=== PATIENT | male | born 1945 | race Caucasian/White ===

== ENCOUNTER 2016-12-18 23:53 | Inpatient (IN) | payer MEDICARE, BC ==
--- NOTE | ~2016-12-18 | CR72 ---
[facility] A Service of [facility] & [facility] RADIOLOGY TEXT RESULTS PATIENT: SONNY MACHADO LOCATION: C2A 239 : 45 UNIT #: [id number] AGE: [address]: Elie Clinton MD SEX: M ORDER DR: [id number] [facility] [address] [place], [place] [address] [id number] MR#: [id number] Acc #: [id number] NAME: SONNY MACHADO. : 1945 SEX: M STUDY DATE/TIME: 12/18/2016 23:04 UNIT: [facility] ROOM: 239 STUDY DESCRIPTION: CR Chest Single View Portable Attending Physician: Elie Clniton M.D. Ordering Physician: Lemuel Walls M.D. Primary Care Physician: Patti Viera M.D. MEDICAL IMAGING REPORT This report is preliminary unless electronic signature is present EXAM Portable chest, 12/18 at 23:04 INDICATION Shortness of air, chest pain and cough for 3 weeks. History of smoking. FINDINGS AP portable views of the chest are compared with 02/23/2015. Again seen is emphysema. There is chronic scarring at the left base with chronic pleural thickening or pleural fluid on the left side. No pneumothorax. Cardiac and mediastinal contours are normal. There is a left side coronary stent. There is some potentially new pleural-based density in the left apex. This is not clearly seen on the prior chest x-ray. It is also not definitively seen on the chest CT of 10/21/2015. Non-emergent followup with repeat chest CT is recommended. IMPRESSION Severe emphysema with chronic scarring at the left base and chronic left pleural thickening or pleural fluid. There are no acute infiltrates. However, there is increased density at the left lung apex not definitely seen on prior studies. Cannot exclude the presence of developing mass. Non-emergent chest CT recommended for follow up. Dictated by... Joce Tate Jr., M.D. THIS IS AN ELECTRONICALLY VERIFIED REPORT Joce Tate Jr., M.D. at 12/19/2016 9:15 PM ALEC/bronson TD: 12/19/2016 09:49 JOB #: [id number] [facility] A Service of [facility] RADIOLOGY TEXT RESULTS PATIENT: SONNY MACHADO LOCATION: [facility] 239- : 45 UNIT #: [id number] AGE: [address]: Elie Clinton MD SEX: M ORDER DR: MEDICAL IMAGING REPORT COPY
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
--- NOTE | ~2016-12-18 | CO ---
Unit #: [id number] #: [id number] Patient: SONNY MACHADO [id number] [place] [id number] [facility]. [place], [place] [address] [id number] I MR#: [id number] NAME: SONNY MACHADO. ROOM: 239 Age: 71 Sex: M Admission Date: 12/19/2016 : 1945 Attending Physician: Elie Clinton M.D. Primary Care Physician: Patti Viera M.D. Consultation Date: 12/25/2016 CONSULTATION REPORT HISTORY OF PRESENT ILLNESS Mr. Machado is a 71-year-old gentleman, who is a patient of Dr. Viera, who was admitted to the hospital with community-acquired right lower lobe pneumonia. During evaluation, it was noted that he has had significant weight loss over the last year with estimates between 70 pounds and 100 pounds. As a result, he underwent endoscopic evaluation by Dr. Trejo and on today's colonoscopy in the cecum around the orifice of the appendix, Dr. Trejo was concerned there may be a malignancy. There was unfortunately some retained stool and biopsy was not performed. However on CT scan, there is also an abnormality in this area, although not well defined. The concern is because of lack of other etiologies for his weight loss that this could be an appendiceal or cecal carcinoma. Dr. Trejo has asked to see the patient to perform a possible cecectomy or hemicolectomy as appropriate. PAST MEDICAL HISTORY The patient has a history of ankylosing spondylitis with significant mobility issues. He has a history of congestive heart failure with an ejection fraction of 20%, history of left apical thrombus, but it is not a candidate for anticoagulation. He has had prostate cancer, status post resection; chronic kidney disease, COPD with ongoing tobacco abuse; asthma; anxiety; bilateral inguinal hernia repair; basal cell cancer surgery. HOME MEDICATIONS Include Valium, Percocet, Neurontin, and Remeron. FAMILY HISTORY Noncontributory. SOCIAL HISTORY Continued tobacco abuse. Denies use of alcohol or drugs. He lives by himself, but he has a sister who is very supportive. ALLERGIES He is allergic to shellfish and influenza virus. REVIEW OF SYSTEMS He denies hematemesis, hematochezia, or melena. He does admit to significant weight loss, but he is uncertain the exact amount. His doctor is documented anywhere from 70 to 100 pounds. The patient stating that he is eating without difficulty. PHYSICAL EXAMINATION Unit #: [id number] #: [id number] Patient: SONNY MACHADO VITAL SIGNS: Temperature is 97.3, pulse is 66, respirations 16, blood pressure 107/45. GENERAL: He is awake, alert, and oriented. He is frustrated by being in the hospital. HEENT: Unremarkable. CARDIAC: Regular rhythm. LUNGS: Clear. ABDOMEN: Soft and nontender. No palpable masses. No inguinal adenopathy. No hernia. EXTREMITIES: No edema. NEUROLOGIC: Grossly intact. SKIN: No skin rashes or lesions. DIAGNOSTIC STUDIES LABORATORY RESULTS: Basic metabolic panel today is unremarkable. Magnesium is normal. On admission, liver chemistries and amylase and lipase were normal. White count is 8100, hemoglobin 12.4, platelets 145,000. IMAGING STUDIES: CT scan of the chest shows a right lower lobe pneumonia and emphysema. CT scan of the abdomen and pelvis is read as abnormality at the base of the cecum could not rule out fecalith and ileus, diffuse atherosclerotic disease, history of prostatectomy. Plain films of the abdomen otherwise unremarkable. ASSESSMENT AND PLAN A 71-year-old gentleman, who underwent colonoscopy by Gastroenterology and there was concern about an abnormality around the appendiceal orifice. With his significant weight loss and no other findings, there was concern he could have an occult malignancy. I discussed with the patient the possibility of doing a partial cecectomy for diagnosis followed by hemicolectomy if he does in fact have an underlying malignancy. The patient currently was fixated on the fact that he wants to go home and take care of some personal issues. I discussed with him the possibility that this could be a malignancy and he said he understands and knows putting it off could be detrimental, but he still wants to leave the hospital and states he will follow up in 2 to 3 weeks, as far as his pneumonia that will be up to the medical physician whether or not he has been adequately treated to leave the hospital. I also discussed with the patient that if he leaves the hospital before undergoing surgery at this time that we would have to repeat his bowel prep prior to surgery and he expresses understanding. Due to his history of congestive heart failure, an ejection fraction of 20%. I have asked Dr. Andrade to evaluate the patient to see his suitability for surgery. Dictated by... Carina Griffin/ron TD: 12/26/2016 03:04 JOB #: [id number] Unit #: [id number] #: [id number] Patient: SONNY MACHADO CONSULTATION REPORT X Joce Mcmahan MD X CONSULTATION REPORT
--- NOTE | ~2016-12-18 | A ---
[facility] Nutrition Therapy DATE: 12/19/16 Patient: SONNY MACHADO Physician: YOU Address: [address] [place] [address] Room/Bed: [address] [place] [address], Zip: [place] [address] Admit Date: 12/19/16 Date of : [birth year] Height: 6 0 Weight: 121 55.2 NUTRITIONAL ASSESSMENT: REASON: 7 NUTRITION RISK PT RE: WEIGHT LOSS + POOR PO INTAKE, ALSO SEEN FOR LOW BMI + CONSULT RECEIVED PMH: ANKYLOSING SPONDYLITIS, CKD, HTN, CHF, COPD, ASTHMA, PROSTATE CA, HX OF INGUINAL HERNIA REPAIR Anthropometrics: 6'0", WT: 124# (56 KG), BMI: 16,8, 70%IBW Labs: GLU: 198, ALT: 5, LIPASE: 14 Meds: REMERON, NACL I/O & Bowel function: 240/- Skin Integrity: NO KNOWN SKIN ISSUES Estimated Nutrition Needs: INCREASED NUTRIENT NEEDS 2' SEVERE WEIGHT LOSS NOTED, CURRENT CONDITION Assessment: CHART REVIEWED AND EVENTS NOTED. PT SEEN FOR WEIGHT LOSS + POOR PO INTAKE + LOW BMI. PT REPORTED FAIR/GOOD PO INTAKE AND APPETITE, NO C/O N/V/D. PT REPORTS CONSUMING 2 MEALS DAILY + 4 ENSURE SHAKES (NOTE: PT NOT A BREAKFAST EATER). PT REPORTS LOSING ~70# PAST 8 MONTHS/36% SEVERE WEIGHT LOSS NOTED. THIS RD ENCOURAGED ADEQUATE KCAL, PROTEIN AND FLUID INTAKE FOR GRADUAL WEIGHT GAIN. PT AGREED TO ENSURE SHAKES TID W/MEALS. PT REPORTED NO DIET QUESTIONS AT THIS TIME. RD TO FOLLOW. SEE RECOMMENDATIONS BELOW. Dx: SEVERE PROTEIN/KCAL MALNUTRITION R/T CURRENT CONDITION, PMH AEB ~36% SEVERE WEIGHT LOSS NOTED IN 8 MONTHS, LOW BMI OF 16.8, 70%IBW. Intervention: 1. HH DIET (NPO AFTER MIDNIGHT FOR EGD 12/20/16) 2. ENSURE SHAKES TID W/MEALS 3. CHANGE CURRENT DIET ORDER TO REGULAR Monitoring, Evaluation and Goals: 1. PO INTAKE; PROVIDE AND CONSUME ADEQUATE NUTRITION W/NO C/O N/V/D (PO>50%) 2. WEIGHTS; PROMOTE GRADUAL WEIGHT GAIN TOWARDS HEALTHY BMI (19.0-25.0) 3. GI; PROMOTE REGULAR GI FUNCTION MONITOR: -PO INTAKE/APPETITE/DIET CHANGE [facility] Nutrition Therapy DATE: 12/19/16 Patient: SONNY Buchanan CARTER Physician: YOU Address: [address] [place] [address] Room/Bed: [address] [place] [address], Zip: [place] [address] Admit Date: 12/19/16 Date of : [birth year] Height: 6 0 Weight: 121 55.2 -SUPPLEMENT INTAKE -WEIGHTS -LABS Recommendations: 1. OBTAIN UPDATED WEIGHT q 3 DAYS FOR MONITORING PURPOSES 2. RECOMMEND TO CHANGE CURRENT DIET ORDER TO REGULAR TO BETTER FACILITATE PO INTAKE, OFFER MORE FOOD CHOICES 3. ORDER TANYA ENSURE SHAKES TID W/MEALS 4. IF PO INTAKE <50%, RECOMMEND APPETITE STIMULANT, SUCH MEGACE, TO STIMULATE PO INTAKE 5. APPRECIATE FAMILY AND STAFF TO ENCOURAGE ADEQUATE KCAL, PROTEIN AND FLUID INTAKE 2' PT UNDERWEIGHT, SEVERE WEIGHT LOSS NOTED RD WILL F/U PER PROTOCOL PT IS SEVERELY COMPROMISED Respectfully, CHRISS OTT MS, RD, LD [facility] cc: client file
--- NOTE | ~2016-12-18 | MAL ---
[facility] Nutrition Therapy DATE: 12/19/16 Patient: SONNY A CARTER Physician: YOU Address: [address] [place] [address] Room/Bed: [address] [place] [address], Zip: [place] [address] Admit Date: 12/19/16 Date of : [birth year] Height: 6 0 Weight: 121 55.2 PHYSICAL MALNUTRITION ASSESSMENT Energy Intake, Chronic Illness Moderately reduced: <75% needs for >/=1 month Severely reduced: </=50% needs for >/=1 month Energy Intake Comment: PT REPORTS CONSUMING 2 MEALS DAILY + 4 ENSURE SHAKES. PT NOTES HE SKIPS BREAKFAST DAILY. Weight Loss, Chronic Illness Severe: >10% past 6 months Severe: >20% past 1 year Weight Loss, Comment: PT REPORTS LOSING ~70# PAST 8 MONTHS/36% SEVERE WEIGHT LOSS NOTED Physical Findings Body Fat and Muscle Mass Severe: (obvious) significant muscle wasting and/or loss of subcutaneous fat Physical Findings Functional Capacity Moderate: (suggested) reduced functional capacity Severe: (obvious) bedridden or otherwise significantly reduced functional capacity Physical Findings Comment: PMH OF ANKYLOSING SPONYLITIS. PER RD OBSERVATION, TEMPORAL AREA HOLLOW/DEPRESSED, PROTRUDING, PROMINENT SHOULDERS AND CLAVICLE, PROMINENT SCAPULA, NO MUSCLE DEFINITION NOTED BICEPS/TRICEPS AND CALVES. ALSO, RD OBSERVED, PRONOUNCED HOLLOW DEPRESSED EYES, PROMINENT CHEST AND WELL-DEFINED RIBS, DRY MOUTH, DRY SKIN AND NAILS OBSERVED. Chronic illness moderate Chronic illness severe Malnutrition Survey Comment: PT TO BE SEVERELY COMPROMISED. SEE RD ASSESSMENT ON 12/19/16 Respectfully, CHRISS OTT MS, RD, LD [facility] Nutrition Therapy DATE: 12/19/16 Patient: SONNY MACHADO Physician: YOU Address: [address] [facility] Room/Bed: [address] [place] [address], Zip: [place] [address] Admit Date: 12/19/16 Date of : [birth year] Height: 6 0 Weight: 121 55.2 Food and Nutritional Services [facility] cc: client file
--- NOTE | ~2016-12-18 | HP ---
Unit #: [id number] #: [id number] Patient: SONNY MACHADO [id number] [address] [place], [place] [address] [id number] I MR#: [id number] NAME: SONNY MACHADO ROOM: 239 Age: 71 Sex: M Admission Date: 12/19/2016 : 1945 Attending Physician: Elie Clinton M.D. Primary Care Physician: Patti Viera M.D. HISTORY AND PHYSICAL CHIEF COMPLAINT Shortness of breath, cough with sputum production. HISTORY OF PRESENTING ILLNESS Mr. Machado is a 71-year-old male who has a significant medical history of ankylosing spondylitis with significant disability, chronic kidney disease, hypertension, congestive heart failure with ejection fraction of 20% to 25%, left apical thrombus, history of prostate cancer, history of basal cell carcinoma of the skin, tobacco abuse, came with a complaint of shortness of breath. According to patient, this has been going on for the last two weeks which was gradually getting worse. The patient is also bringing sputum which is whitish to yellowish color. He does not have any orthopnea, no paroxysmal nocturnal dyspnea. He is not able to ambulate even one block without getting short of breath. Most of the time it is exertional dyspnea. Does not complain of chest pain. Does not complain of abdominal pain. He does have some dizziness. No syncopal episode. PAST MEDICAL HISTORY 1. History of congestive heart failure with ejection fraction of 20% to 25% with apical thrombus, not a candidate for anticoagulation. 2. History of prostate cancer, status post surgery. 3. History of ankylosing spondylitis with significant disability. 4. Chronic kidney disease. 5. Ongoing tobacco abuse. 6. History of COPD/asthma. 7. History of anxiety. PAST SURGICAL HISTORY 1. Prostate surgery. 2. Bilateral inguinal hernia repair. 3. Basal cell cancer surgery. SOCIAL HISTORY The patient has a history of smoking and continued to smoke. No history of alcohol abuse or drug abuse. He lives by himself. His sister lives in [place]. He has no other family member. HOME MEDICATIONS 1. Valium 10 mg four times a day. 2. Percocet 10/325 mg q.4 p.r.n. 3. Neurontin 400 mg four times a day. 4. Remeron 60 mg at bedtime. FAMILY HISTORY Unit #: [id number] #: [id number] Patient: SONNY MACHADO Unremarkable. REVIEW OF SYSTEMS There is no history of fevers, chills or rigors. The patient has had significant weight loss. He does not complain of abdominal pain. Does not complain of appetite loss. He has been eating properly and trying to even have some Ensure but it is very expensive so cannot afford much. Does not complain of black colored stools. Does not complain of syncopal episode. Does not complain of any skin issues but he continues to lose weight. He does have significant ankylosing spondylitis with significant disability. PHYSICAL EXAMINATION GENERAL: The patient is lying comfortably in bed, does not seem to be in any respiratory distress. VITAL SIGNS: Blood pressure is 96/58, respiratory rate 18, pulse is 80, temperature 97.4. Oxygen saturation is 99% on 2 L. HEENT: Head is normocephalic. Eye movements are normal. NECK: Supple. CHEST: Fair air entry, decreased in the right lower lobe. CVS: S1, S2 positive. Regular rhythm. ABDOMEN: Soft, nontender although scaphoid. Bowel sounds are positive. No ascites noted. EXTREMITIES: Bilateral lower extremities - no edema. Pulses are palpable. SCRIPT EDITOR: The patient is awake, alert, oriented x3 although poor historian. DIAGNOSTIC STUDIES LABORATORY: Lab workup done in ER - WBC 10.4, hemoglobin 13.8, hematocrit 41.3 and platelet count of 181. PT/INR is 11.8 and 1.1. Lactic acid 2.5. Sodium 132, potassium 3.2, chloride 91, BUN 10, creatinine 1.3. Liver enzymes are normal. Amylase and lipase normal. Magnesium 1.8. Troponin less than 0.03. IMAGING: CT scan preliminary results show right lower lobe infiltrate and some pericardial effusion. Abdomen and pelvis preliminary is not much significant. We are awaiting for the final results. ASSESSMENT AND PLAN Patient is admitted to Med/Surg unit with: 1. Right lower lobe pneumonia, community-acquired. 2. Significant weight loss, etiology unknown at this time. 3. Hypertension. 4. History of congestive heart failure with last ejection fraction 20% to 25% with apical thrombus in 11/2015. The patient is not on any beta miguel or MONIQUE inhibitor secondary to hypertension. 5. Chronic kidney disease. 6. Ongoing tobacco abuse. 7. History of prostate cancer, status post surgery. 8. History of ankylosing spondylitis with significant disabilities. Unit #: [id number] #: [id number] Patient: SONNY MACHADO PLAN Admit to Med/Surg unit. Dr. Ruano has been consulted. Will wait for final results on CT scan of the chest and abdomen. Orthostatic blood pressure will be done. Dr. Trejo will be consulted for possible EGD and colonoscopy. PSA is being checked. Echocardiogram will be repeated. Last note from Dr. Andrade's office will be obtained. Home medications have been reviewed and adjusted. Plan of care has been discussed with patient at length. Dictated by Carina Thomas/vickey TD: 12/19/2016 09:46 JOB #: [id number] HISTORY AND PHYSICAL X Patti Viera MD X HISTORY AND PHYSICAL
--- NOTE | ~2016-12-18 | CT4 ---
[facility] A Service of [facility] RADIOLOGY TEXT RESULTS PATIENT: SONNY MACHADO LOCATION: [facility] 239- : 45 UNIT #: [id number] AGE: [address]: Elie Clinton MD SEX: M ORDER DR: [id number] [facility] [address] [place], [place] [address] [id number] I MR#: [id number] Acc #: [id number] NAME: SONNY MACHADO. : 1945 SEX: M STUDY DATE/TIME: UNIT: [facility] ROOM: 239 STUDY DESCRIPTION: CT Abd and Pelv Wo Cont Attending Physician: Elie Clinton M.D. Ordering Physician: Lemuel Walls M.D. Primary Care Physician: Patti Viera M.D. MEDICAL IMAGING REPORT This report is preliminary unless electronic signature is present EXAM Abdomen and pelvis CT 12/19/2016 at 0103 hours INDICATION Fatigue for 2 weeks getting worse with lightheadedness and loss of appetite. Patient reports constipation and groin pain with a fall 2 days ago. Patient has a history of prostate cancer. TECHNIQUE Axial images were obtained through the abdomen and pelvis without contrast. Multiplanar reformats were obtained. This CT exam was performed with one or more of the following radiation dose reduction techniques: automatic exposure control, adjustment of mA and/or kV according to patient size, and iterative reconstruction. COMPARISON Comparison is made with 10/26/2015. FINDINGS ABDOMEN: For a description of findings in the lung bases, please see the chest CT report dictated separately. The exam is degraded by the lack of contrast. Of note, the patient has an allergy to IV contrast. Again seen is diffuse atherosclerotic disease. Tiny nonobstructing stones versus vascular calcifications noted lower pole left kidney. No ureteral stones and no hydronephrosis. The unenhanced solid organs are grossly normal. Gallbladder is unremarkable. There is no bowel obstruction. Gas in small bowel loops could reflect a mild ileus. There is also prominent colonic gas noted. PELVIS: There is atherosclerotic disease. High-density material is noted in the cecum and could reflect contrast or other ingested material. This is seen on the prior study as well. It probably reflects a fecalith. I believe the appendix is normal. Gas-filled and fluid-filled mildly STS. [facility] A Service of [facility] RADIOLOGY TEXT RESULTS PATIENT: SONNY MACHADO LOCATION: [facility] 239-01 : 45 UNIT #: [id number] AGE: [address]: Elie Clinton MD SEX: M ORDER DR: distended distal small bowel loops are present. These are increased over prior and may reflect ileus. The urinary bladder is normal. There are no lower ureteral stones. The prostate is surgically absent. Minimal free fluid noted in the dependent pelvis. There are no suspicious osseous lesions in the abdomen or pelvis. There is degenerative disease in the lumbar spine and hips, left greater than right. IMPRESSION 1. There is an apparent fecalith within the cecum. 2. Prominent small bowel loops are noted with gas and mild distension. This probably reflects a generalized ileus as there is some prominent colonic gas as well. Developing small bowel obstruction is not completely excluded. What appears to be the appendix is normal. 3. Prostatectomy. No convincing evidence of metastatic prostate cancer. 4. Diffuse atherosclerotic disease. There are tiny nonobstructing stones versus vascular calcifications in the lower pole of the left kidney. No hydronephrosis. 5. Trace nonspecific free fluid in the dependent pelvis. STAT * RESULT Dictated by... Joce Tate Jr., M.D. THIS IS AN ELECTRONICALLY VERIFIED REPORT Joce Tate Jr., M.D. at 12/19/2016 9:15 PM ALEC/genaro TD: 12/19/2016 09:50 JOB #: [id number] MEDICAL IMAGING REPORT COPY
--- NOTE | ~2016-12-18 | FU ---
[facility] Nutrition Therapy DATE: 12/24/16 Patient: SONNY MACHADO Physician: YOU Address: [address] [place] [address] Room/Bed: [address] [place] [address], Zip: [place] [address] Admit Date: 12/19/16 Date of : [birth year] Height: 6 0 Weight: 126 57.5 NUTRITION MONITORING/FOLLOW-UP: Reason: Nutrition follow up Anthropometrics: Ht: 72", admission wt: 124 lbs, current wt: 126 lbs, BMI: 16.8 (underweight) Labs: Glucose 134 Meds: Citrate of Mg, Miralax, Solu-medrol GI: LBM 12/24, abdominal cramping due to bowel prep noted Skin: No changes, no edema Estimated Nutrition Needs: Increased needs r/t weight loss, malnutrition Assessment: Chart reviewed, events noted. Patient on 2L nasal cannula, up 2 lbs since admission weight. 12/20 EGD showed mild chronic gastritis, patient has been on clear liquids since yesterday 12/23, previously on healthy heart diet. RD previously diagnosed with severe PCM and recommended regular diet with chocolate Ensure TID. GI following, patient currently going through bowel prep for colonoscopy in AM, will be NPO after midnight. Patient is refusing short-term rehab. RD unable to make further interventions at this time due to current diet order, see recs below. Previous nutrition goals not yet met, nutrition dx remains. Dx: Severe protein calorie malnutrition r/t clinical condition, PMH AEB 36% body weight loss in 8 months (severe), BMI 16.8, 70% IBW. - ACTIVE Intervention: See recs below Monitoring, Evaluation and Goals: NOT MET, see new goals 1. Tolerance of diet advancement once ordered. 2. Normalize GI function. 3. Gradual weight gain towards a healthy BMI range. Monitor: Per protocol, criteria to determine if above goals met Recommendations: 1. Once medically able advance PO diet to regular diet as tolerated and order chocolate Ensure TID. Appreciate staff/family to encourage PO intake. Please consult RD with any [facility] Nutrition Therapy DATE: 12/24/16 Patient: SONNY MACHADO Physician: YOU Address: [address] [place] [address] Room/Bed: [address] [place] [address], Zip: [place] [address] Admit Date: 12/19/16 Date of : [birth year] Height: 6 0 Weight: 126 57.5 nutrition-related abnormal findings on colonoscopy. 2. Please weigh q 3 days for monitoring purposes as the patient is underweight. 3. GI to follow. Status: Moderate nutrition risk Respectfully, María Elena Grijalva RD, LD Food and Nutritional Services [facility] cc: client file
--- NOTE | ~2016-12-18 | OR ---
Unit #: [id number] #: [id number] Patient: SONNY MACHADO [id number] [address] [address] [id number] I MR#: [id number] NAME: SONNY MACHADO ROOM: 239 Date of Procedure: 12/20/2016 Admission Date: 12/19/2016 Surgeon: Guillermo Trejo M.D. : 1945 Attending Physician: Elie Clinton M.D. Primary Care Physician: Patti Viera M.D. OPERATIVE REPORT PROCEDURE PERFORMED Esophagogastroduodenoscopy with biopsies. INDICATIONS FOR PROCEDURE The patient with very poor intake, 70-pound weight loss, undergoing evaluation with upper endoscopy. MEDICATIONS Monitored anesthesia. POSTOPERATIVE FINDINGS 1. Normal esophagus. 2. Mild chronic gastritis, biopsies taken. 3. Normal duodenum and distal duodenum. PLAN No clear etiology found. Continue with symptomatic treatment and encourage p.o. intake. We will also have speech evaluate him for swallow function. DESCRIPTION OF PROCEDURE The patient was explained of the procedure, risks, and benefits along with risks and benefits of anesthesia. He was brought to the endoscopy room. Propofol anesthesia was given. Bite block was placed. The scope was passed down the mouth into esophagus, stomach, duodenum, and distal duodenum. Findings as described. Biopsies taken. Gently, I pulled the scope out of the patient's mouth. He tolerated it well. No major complications were seen. Dictated by... Carina Dixon/ron TD: 12/21/2016 02:14 JOB #: [id number] Unit #: [id number] #: [id number] Patient: SONNY MACHADO OPERATIVE REPORT X Guillermo Trejo MD X PROCEDURE OPERATIVE NOTE
--- NOTE | ~2016-12-18 | DS ---
Unit #: [id number] #: [id number] Patient: SONNY MACHADO [id number] [address] [address] [id number] I MR#: [id number] NAME: SONNY MACHADO. ROOM: 239 Age: 71 Sex: M Admission Date: 12/19/2016 : 1945 Discharge Date: 12/25/2016 Attending Physician: Elie Clinton M.D. Primary Care Physician: Patti Viera M.D. DISCHARGE SUMMARY FINAL DIAGNOSES 1. Right lower lobe pneumonia. 2. Chronic systolic congestive heart failure with left ventricular ejection fraction of 20% to 25% per echo, which was done on 12/19/2016. 3. Chronic left ventricular apical clot. 4. Mild mitral regurgitation. 5. Mild to moderate tricuspid regurgitation. 6. Right ventricular systolic pressure elevated to 30 mmHg. 7. Chronic obstructive pulmonary disease. 8. Hypertension. 9. Chronic kidney disease. 10. Ankylosing spondylitis. 11. Significant weight loss. 12. Coronary artery disease, status post percutaneous coronary intervention and stent placement in 2010. 13. Nicotine abuse. 14. Cecal mass, status post colonoscope, which was done on 12/25/2016. DISCHARGE MEDICATIONS Florinef 0.1 mg p.o. b.i.d.; prednisone tapering dose; Neurontin 400 mg q.i.d.; Remeron 60 mg at bedtime; Valium 10 mg q.i.d. p.r.n.; Percocet, continue home dose; Omnicef 300 mg p.o. b.i.d. for 3 more days as the patient has received IV Rocephin and Zithromax during hospitalization. CONSULTATION DURING HOSPITALIZATION Dr. Andrade from Cardiology Services; Dr. Ruano from Pulmonary Services; Dr. Mcmahan from [facility]; Dr. Trejo from Gastroenterology. DIAGNOSTIC STUDIES LABORATORY RESULTS: On discharge, blood cultures, no growth. WBC 8.1, hemoglobin 12.4, hematocrit 38.9, and platelet count of 145. Sodium 140, potassium 4.1, chloride 96, BUN 13, creatinine 1.2. Sputum culture 1+ normal aleksandra. Status post bronch, which showed 3+ normal aleksandra. Hemoccult in stool was negative. Diagnostic bronchoscopy was done on 12/22/2016, vocal cords appeared to be symmetrically moving towards the midline. Trachea was normal. Right upper, right middle, right lower lobe, left upper lobe, lingula and left lower lobe seems to be stable. No endobronchial lesions were seen. There was thick mucoid secretion in both lungs, which were therapeutically suctioned. EGD, which showed normal esophagus with mild chronic gastritis, biopsy taken, normal duodenum and distal duodenum. Unit #: [id number] #: [id number] Patient: SONNY MACHADO A Colonoscopy, which showed a cecal mass and polyp. HOSPITAL COURSE Mr. Reeder is a 71-year-old male, who was admitted to the hospital on 12/19/2016 with shortness of breath, cough and sputum production. The patient was admitted to hospital and was diagnosed with right lower lobe pneumonia. Dr. Freeman and Dr. Ruano were consulted and the patient was started on IV antibiotics. The patient did have a bronchoscopy done, which seemed to have no endobronchial lesion. The patient was also seen by Dr. Andrade because of abnormal echocardiogram, which showed an ejection fraction of 20% to 25%. It seems like the patient does have coronary artery disease, and used to see a induction coordination engineer in [facility]. The patient also has chronic left ventricular apical clot. The patient will need a stress test done before surgical procedure for cecal mass. The patient does not want to stay in the hospital. He has something to do at home. We are going to discharge him home to have a stress test done in a week or so and after that, he needs to be scheduled with Dr. Mcmahan for cecal mass surgery. Again, colonoscope was done, which showed cecal mass and the patient needs to have that looked at and surgery done by Dr. Mcmahan, but Dr. Mcmahan did see the patient on 12/25/2016, but he refused to stay in the hospital. So, as per Dr. Mcmahan, follow up with him in office when ready to schedule surgery. The patient will have to have a stress test done before surgery. Please refer to progress note for further orders. DISCHARGE INSTRUCTIONS 1. The patient is being discharged home. 2. Follow up with Dr. Viera in 1 week. 3. Follow up with Dr. Andrade for cardiac stress test in a week. 4. Follow up with Dr. Mcmahan after patient has been cleared from Cardiology point of view for cecal mass surgery. DISCHARGE MEDICATIONS As per med rec. Dictated by... Carina Thomas/ron TD: 12/27/2016 05:30 JOB #: [id number] DISCHARGE SUMMARY X Patti Viera MD X DISCHARGE SUMMARY
--- NOTE | ~2016-12-18 | CR4 ---
[facility] A Service of [facility] RADIOLOGY TEXT RESULTS PATIENT: SONNY MACHADO LOCATION: [facility] 239- : 45 UNIT #: [id number] AGE: [address]: Elie Clinton MD SEX: M ORDER DR: [id number] [facility] [address] [place], [place] [address] [id number] I MR#: [id number] Acc #: [id number] NAME: SONNY MACHADO. : 1945 SEX: M STUDY DATE/TIME: 12/20/2016 13:44 UNIT: [facility] ROOM: 239 STUDY DESCRIPTION: CR Abdomen Flat Upright or Dec Attending Physician: Elie Clinton M.D. Ordering Physician: Guillermo Trejo M.D. Primary Care Physician: Patti Viera M.D. MEDICAL IMAGING REPORT This report is preliminary unless electronic signature is present EXAM Flat and upright abdomen 12/20/2016 INDICATIONS 71-year-old male with abdominal pain, diarrhea, weight loss, symptoms 2 weeks. Weight loss of 100 pounds over the past year. Supine and upright views of the abdomen were performed. COMPARISON STUDIES Correlation is made with CT 12/19/2016 FINDINGS Exam is markedly degraded by technical factors, primarily related to exposure and motion. The upright view is particularly limited. There is no gross free air identified. There is gaseous distension of small and large bowel. Supine view demonstrates gaseous distension of small and large bowel without distinct transition point. Moderate stool burden in the right colon. Air is seen to the level of the rectum. There is clothing artifact on 1 of the 2 supine views. Postop changes that may reflect prior prostate surgery noted. There is degenerative change in the hips and lumbar spine. Additional presumably external artifact related to keys and coins project over the hips bilaterally. Incidental note is made of consolidation in the left lung base. This would be better assessed with a chest x-ray. Imaging features are suspicious for pneumonia. IMPRESSION 1. Limited examination demonstrates no distinct free air. There is gaseous distension of small and large bowel to the level the rectum and imaging features likely reflect a diffuse ileus. 2. Moderate stool burden in the right colon. 3. Consolidation in the left lung base suspicious for pneumonia. 4. Degenerative changes in the lumbar spine and both hips. [facility] A Service of [facility] RADIOLOGY TEXT RESULTS PATIENT: SONNY MACHADO LOCATION: [place] [address] : [birth year] UNIT #: [id number] AGE: [address]: Elie Clinton MD SEX: M ORDER DR: Dictated by... Tawanda Ospina M.D. THIS IS AN ELECTRONICALLY VERIFIED REPORT Tawanda Ospina M.D. at 12/21/2016 8:11 AM Mega TD: 12/20/2016 16:58 JOB #: [id number] MEDICAL IMAGING REPORT COPY
--- NOTE | ~2016-12-18 | OR ---
Unit #: [id number] #: [id number] Patient: SONNY MACHADO [id number] [address] [place], [place] [address] [id number] Jeremy MR#: [id number] NAME: SONNY MACHADO. ROOM: 239 Date of Procedure: 12/25/2016 Admission Date: 12/19/2016 Surgeon: Guillermo Trejo M.D. : 1945 Attending Physician: Elie Clinton M.D. Primary Care Physician: Patti Viera M.D. OPERATIVE REPORT PROCEDURE PERFORMED Colonoscopy with snare polypectomy. INDICATIONS FOR PROCEDURE The patient with unexplained severe weight loss, abnormal CT scan showing possible cecal abnormality, undergoing colonoscopy for evaluation. MEDICATIONS Monitored anesthesia. POSTOPERATIVE FINDINGS 1. There was at least 3 to 4 cm bulging mass at the appendiceal orifice. It could be possibly inverted appendix with the mass versus fecalith. Overlying mucosa was normal. 2. Polyp, transverse colon, snared and sent for histopathology. Hemoclips placed on the polypectomy site. 3. Few diverticula were noted. 4. Poor anal tone and internal hemorrhoids. PLAN 1. Follow up on pathology report. 2. Surgical consult for possible limited resection of the cecum and appendiceal mass. DESCRIPTION OF PROCEDURE The patient was explained of the procedure, risks, and benefits along with risks and benefits of anesthesia. He was brought to the endoscopy room. Propofol anesthesia was given. Rectal exam was done, which was normal. Colonoscope was lubricated, passed up the rectum, advanced under direct vision all the way to the cecum. Cecum shows findings as described. The scope was then carefully withdrawn. Prep was good. Polyp seen in transverse colon was snared and sent for histopathology. I retroflexed in the rectum, internal hemorrhoids noted. Gently, the scope was pulled out. He tolerated it well. No major complications were seen. Dictated by... Carina Dixon/ron Unit #: [id number] #: [id number] Patient: SONNY MACHADO TD: 12/25/2016 23:50 JOB #: [id number] OPERATIVE REPORT X Guillermo Trejo MD PROCEDURE OPERATIVE NOTE
--- NOTE | ~2016-12-18 | OR ---
Unit #: [id number] #: [id number] Patient: SONNY MACHADO [id number] [address] [address] [id number] I MR#: [id number] NAME: SONNY MACHADO. ROOM: 239 Date of Procedure: Admission Date: 12/19/2016 Surgeon: Laurence Ruano M.D. : 1945 Attending Physician: Elie Clinton M.D. Primary Care Physician: Patti Viera M.D. PROCEDURE OPERATIVE NOTE PROCEDURE PERFORMED Diagnostic bronchoscopy. INDICATIONS Pneumonia. PREPROCEDURE DIAGNOSIS Pneumonia. POSTPROCEDURE DIAGNOSIS Pneumonia. DETAIL OF PROCEDURE After taking consent from the patient explaining risks and benefits, the patient was placed in a proper position. Bronchoscope introduced through the oral cavity. Vocal cords appear to be symmetrically moving toward the midline. Trachea was normal. We examined right upper, right middle, right lower lobe, left upper lobe, lingula, and left lower lobe. No endobronchial lesions was found. There was thick mucoid secretions in both lungs which were therapeutically suctioned. Then, we did a bronchoalveolar lavage in the right lower lobe are with 100 mL of saline and in and 20 mL back. Patient tolerated procedure very well. No complications happened. Dictated by... Carina Pérez TD: 12/22/2016 14:42 JOB #: [id number] Unit #: [id number] #: [id number] Patient: SONNY MACHADO PROCEDURE OPERATIVE NOTE X Laurence Rauno MD PROCEDURE OPERATIVE NOTE
--- NOTE | ~2016-12-18 | EKG ---
PATIENT: SONNY MACHADO UNIT #: [id number] Ventricular Rate: 103 BPM Atrial Rate: 83 BPM P-R Interval: 136 ms QRS Duration: 76 ms Q-T Interval: 344 ms QTC Calculation(Bezet): 450 ms P Clifton: 81 degrees Calculated R Clifton: 92 degrees Calculated T Clifton: 69 degrees Diagnosis Line: Sinus rhythm with Premature supraventricular Diagnosis Line: complexes and with occasional Premature Diagnosis Line: ventricular complexes Diagnosis Line: Rightward axis Diagnosis Line: Low voltage QRS Diagnosis Line: Poor R wave progression questionable lead position Diagnosis Line: or body habitus Diagnosis Line: T wave abnormality, consider lateral ischemia Diagnosis Line: Abnormal ECG Diagnosis Line: When compared with ECG of 25-OCT-2015 06:25, Diagnosis Line: Significant changes have occurred Diagnosis Line: Confirmed by BOBBY UNDERWOOD MD ([id number]) on 12/20/2016 Diagnosis Line: 5:32:38 PM INTERPRETING MD: YASMINE FISHER
--- NOTE | ~2016-12-18 | CT57 ---
[facility] A Service of [facility] RADIOLOGY TEXT RESULTS PATIENT: SONNY MACHADO LOCATION: C2A 239 : [birth year] UNIT #: [id number] AGE: [address]: Elie Clintno MD SEX: M ORDER DR: [id number] [facility] [address] [place], [place] [address] [id number] I MR#: [id number] Acc #: [id number] NAME: SONNY MACHADO. : 1945 SEX: M STUDY DATE/TIME: 12/19/2016 01:09 UNIT: C2 ROOM: 239 STUDY DESCRIPTION: CT Chest Wo Cont Attending Physician: Elie Clinton M.D. Ordering Physician: Lemuel Walls M.D. Primary Care Physician: Patti Viera M.D. MEDICAL IMAGING REPORT This report is preliminary unless electronic signature is present EXAM Chest CT 12/19/2016 0109 hours INDICATION Fatigue, shortness of air and cough for 2 weeks getting worse. Loss of appetite. History of emphysema and prostate cancer. Abnormal chest radiograph last night. TECHNIQUE Axial images were obtained through the chest without contrast. Multiplanar reformats were obtained. Comparison made with chest CT from 10/21/2015 and the chest radiograph obtained last night. This CT examination was performed with one or more of the following radiation dose reduction techniques: automatic exposure control, adjustment of mA and/or kV according to patient size, and iterative reconstruction. FINDINGS There is atherosclerotic disease and coronary artery disease. Calcifications are again noted at the left ventricular apex and there may be a focal aneurysm in this location. This is unchanged. There is a trace amount of pericardial fluid, slightly increased. No definite adenopathy is seen. There is a small volume of chronic pleural fluid on the left which is stable. There is severe emphysema. There is chronic consolidation of the left lower lobe with air bronchograms. There is increased debris now noted in the left lower lobe bronchus, but the consolidative change is relatively stable. There is some scarring in the posterior left upper lobe which is unchanged. Tree-in-bud infiltrates are noted in the right lower lobe and are compatible with mild pneumonia. There is some mild dependent atelectasis in the right upper lobe. There is some increase in pleural thickening at the left apex which now measures about 14 mm. This could reflect a soft tissue lesion or may simply reflect some pleural fluid. Consider short-interval followup chest CT in about 3 months. For a description of findings in the upper abdomen, [facility] A Service of [facility] RADIOLOGY TEXT RESULTS PATIENT: SONNY MACHADO LOCATION: [place] [address] : [birth year] UNIT #: [id number] AGE: [address]: Elie Clinton MD SEX: M ORDER DR: please see the CT abdomen and pelvis report dictated separately. No suspicious osseous lesions are identified in the chest. IMPRESSION 1. There is a mild right lower lobe pneumonia. 2. Emphysema. 3. Chronic complete consolidation of the left lower lobe with midline shift of structures to the left. There is increase in secretions in the left lower lobe bronchus. Scarring in the left upper lobe is stable. 4. Chronic small left effusion is unchanged. 5. There is increased thickening at the left apex as seen on the earlier chest radiograph. This is entirely nonspecific and may simply reflect some pleural fluid. Developing soft tissue is not excluded. I would suggest a followup chest CT in about 3 months. 6. There is a small pericardial effusion which is minimally increased over prior. 7. Stable appearance of the left ventricular apex. 8. Atherosclerotic disease and coronary artery disease. Dictated by... Joce Tate Jr., M.D. THIS IS AN ELECTRONICALLY VERIFIED REPORT Joce Tate Jr., M.D. at 12/19/2016 9:16 PM ALEC/patito TD: 12/19/2016 10:06 JOB #: [id number] MEDICAL IMAGING REPORT COPY
--- NOTE | ~2016-12-18 | CO ---
Unit #: [id number] #: [id number] Patient: SONNY MACHADO [id number] [address] [address] [id number] I MR#: [id number] NAME: SONNY MACHADO ROOM: 239 Age: 71 Sex: M Admission Date: 12/19/2016 : 1945 Attending Physician: Elie Clinton M.D. Primary Care Physician: Patti Viera M.D. CONSULTATION REPORT REASON FOR CONSULTATION Pneumonia. CHIEF COMPLAINT Shortness of breath, cough, increasing sputum production. HISTORY OF PRESENT ILLNESS This patient is a 71 year old with past medical history of congestive heart failure, ejection fraction of 20% to 25%, tobacco user. Came in with a complaint of cough, shortness of breath, increasing sputum production. Admitted with the impression of pneumonia. I am seeing the patient at the bedside. Currently on oxygen via nasal cannula. Not in any acute distress. REVIEW OF SYSTEMS Positive pallor. No edema. No cyanosis. No jaundice. Rest is as per history of present illness. The rest of a 12-point review of systems has been reviewed and is negative. PAST MEDICAL HISTORY 1. Congestive heart failure, EF of 25%. 2. Prostate cancer. 3. Ankylosing spondylitis. 4. Chronic kidney disease. 5. COPD. 6. Asthma. 7. Anxiety. PAST SURGICAL HISTORY 1. Prostate surgery. 2. Bilateral inguinal hernia repair. 3. Basal cell cancer surgery. SOCIAL HISTORY One pack smoker per day. Denies alcohol or drug abuse. MEDICATIONS Valium, Percocet, Neurontin, Remeron. PHYSICAL EXAM VITAL SIGNS: Temperature is 98, pulse rate 70, respirations 12, blood pressure 110/70. NEUROLOGIC: Awake, alert and oriented. No neuro deficits. HEENT: PERRLA. EOMI. NECK: Supple. No JVD. Unit #: [id number] #: [id number] Patient: SONNY MACHADO CHEST: Bilateral air entry. Bilateral mild rhonchi. GI: Nontender. Soft. Bowel sounds are positive. EXTREMITIES: No edema. DIAGNOSTIC STUDIES IMAGING: CT chest without contrast was done, which showed complete consolidation of left lower lobe with midline shift of the structures to the left. Increased secretions in the left lower lobe bronchus. Scarring in the left upper lobe is stable. Emphysema. Right lower lobe pneumonia. Increased thickening of the left apex. ASSESSMENT 1. Acute exacerbation of COPD. 2. Acute bronchitis. 3. Pneumonia. PLAN Plan is to admit the patient. Continue him on current IV antibiotics. Get procalcitonin level. May need bronchoscopy. Will continue to follow. Please see orders for detailed plan. Thank you very much for this consultation. Dictated by... Carina Pérez/cas TD: 12/20/2016 13:44 JOB #: [id number] CONSULTATION REPORT X Laurence Ruano MD CONSULTATION REPORT
[2016-12-18 23:27] LABS: BASOPHIL# 0.1 X10e3 (0-0.3); BASOPHIL% 0.5 % (0-2.5); DIFF IND NO; EOSINOPHIL# 0.2 X10e3 (0-0.7); EOSINOPHIL% 1.9 % (0.0-7.0); HEMATOCRIT 41.3 % (38.0-50.0); HEMOGLOBIN 13.8 gm/dL (13.0-16.0); LYMPHOCYTE# 1.4 X10e3 (1.0-3.5); LYMPHOCYTE% 13.6 % (17.0-45.0); MEAN CELL VOLUME 91.6 FL (83-96); MEAN CORPUSCULAR HEMOGLOBIN 30.5 PG (28-34); MEAN CORPUSCULAR HGB CONC 33.3 g/dL (30-36); MEAN PLATELET VOLUME 8.2 FL (6.5-11.5); MONOCYTE# 0.8 X10e3 (0-1.0); MONOCYTE% 7.2 % (3.0-12.0); NEUTROPHIL% 76.8 % (40-75); PLATELET COUNT 181 X10e3 (140-420); RED BLOOD COUNT 4.51 X10e (3.90-5.60); RED CELL DISTRIBUTION WIDTH 13.8 % (11.0-15.5); WHITE BLOOD COUNT 10.4 X10e3 (4.0-10.5)
[2016-12-18 23:40] LABS: INR 1.1; PARTIAL THROMBOPLASTIN TIME 30.9 SECONDS (23.5-31.3); PROTHROMBIN TIME (PATIENT) 11.8 SECONDS (9.6-11.5)
[~2016-12-18 23:53] MED LIST: AUGMENTIN875 M1 PO; CARVEDILOL3.125 MG PO; DESVENLAFAXINE50 M1 PO; DIAZEPAM PO; EFFEXOR XR PO; GABAPENTIN300 M2 PO; INDOCIN SR75 MG PO; ISONIAZID300 MG PO; LISINOPRIL2.5 MG PO; NEURONTIN PO; PERCOCET 10/31 UDTA1 PO; PERCOCET10 PO; PERCOCET5/325 PO; PRISTIQ50 MG PO; REMERON PO; REMERON SOLTAB45 MG PO; VALIUM10 MG PO; VITAMIN B-6
[2016-12-18 23:58] LABS: ALBUMIN SERUM 3.7 g/dL (3.5-5.0); BILIRUBIN, DIRECT 0.1 mg/dL (0.0-0.2); BILIRUBIN,INDIRECT 0.4 mg/dL (0.0-0.9); BILIRUBIN,TOTAL 0.5 mg/dL (0.2-2.0); BUN/CREATININE RATIO 7.69; CALCIUM SERUM 9.1 mg/dL (8.4-10.2); CREATININE SERUM 1.3 mg/dL (0.6-1.4); GLOM FILT RATE Estimated 57.8 mL/min (>60); MAGNESIUM 1.8 mg/dL (1.6-3.0); POTASSIUM 3.9 mmol/L (3.5-5.1); PROTEIN TOTAL SERUM 7.9 g/dL (6.0-8.3)
[2016-12-19] MEDS ORDERED: PERCOCET 10/3251 TAB PO (00:26)
[2016-12-19] MEDS ORDERED: REMERON30 MG PO (00:26)
[2016-12-19] MEDS ORDERED: NEURONTIN PO (00:26)
[2016-12-19] MEDS ORDERED: VALIUM10 MG PO (00:26)
[2016-12-19 00:53] LABS: POC - CKMB <1.0 ng/mL (0.0-7.9); POC - TROPONIN <0.05 ng/mL (<=0.05)
[2016-12-19 07:03] LABS: BASOPHIL% 0.3 % (0-2.5); EOSINOPHIL% 0.2 % (0.0-7.0); HEMATOCRIT 35.5 % (38.0-50.0); LYMPHOCYTE# 0.5 X10e3 (1.0-3.5); LYMPHOCYTE% 7.9 % (17.0-45.0); MEAN CELL VOLUME 92.5 FL (83-96); MEAN CORPUSCULAR HEMOGLOBIN 29.9 PG (28-34); MEAN CORPUSCULAR HGB CONC 32.4 g/dL (30-36); MEAN PLATELET VOLUME 8.1 FL (6.5-11.5); MONOCYTE% 0.8 % (3.0-12.0); NEUTROPHIL# 5.6 X10e3 (1.5-7.1); NEUTROPHIL% 90.8 % (40-75); PLATELET COUNT 145 X10e3 (140-420); RED BLOOD COUNT 3.84 X10e (3.90-5.60); RED CELL DISTRIBUTION WIDTH 13.2 % (11.0-15.5); WHITE BLOOD COUNT 6.1 X10e3 (4.0-10.5)
[2016-12-19 07:22] LABS: DIFF IND NO; HEMOGLOBIN 11.5 gm/dL (13.0-16.0)
[2016-12-19 08:01] LABS: BLOOD UREA NITROGEN 12 mg/dL (9-23); CALCIUM SERUM 8.7 mg/dL (8.4-10.2); CARBON DIOXIDE 30 mmol/L (22-31); CHLORIDE 103 mmol/L (100-111); CREATININE SERUM 1.1 mg/dL (0.6-1.4); GLOM FILT RATE Estimated ABOVE60 mL/min (>60); GLUCOSE FASTING 198 mg/dL (70-110); POTASSIUM 4.7 mmol/L (3.5-5.1)
[2016-12-19 08:04] LABS: SODIUM 143 mmol/L (135-145)
[2016-12-20 06:29] LABS: HEMATOCRIT 35.4 % (38.0-50.0); HEMOGLOBIN 11.6 gm/dL (13.0-16.0); MEAN CELL VOLUME 91.8 FL (83-96); MEAN CORPUSCULAR HEMOGLOBIN 30.1 PG (28-34); MEAN CORPUSCULAR HGB CONC 32.8 g/dL (30-36); MEAN PLATELET VOLUME 8.1 FL (6.5-11.5); RED BLOOD COUNT 3.86 X10e (3.90-5.60); RED CELL DISTRIBUTION WIDTH 13.4 % (11.0-15.5); WHITE BLOOD COUNT 5.7 X10e3 (4.0-10.5)
[2016-12-20 07:01] LABS: ALBUMIN SERUM 2.9 g/dL (3.5-5.0); ALKALINE PHOSPHATASE 64 U/L (32-92); ALT (SGPT) 7 U/L (10-40); AST (SGOT) 13 U/L (10-42); BILIRUBIN,TOTAL 0.1 mg/dL (0.2-2.0); BLOOD UREA NITROGEN 11 mg/dL (9-23); CALCIUM SERUM 9.1 mg/dL (8.4-10.2); CARBON DIOXIDE 34 mmol/L (22-31); CHLORIDE 104 mmol/L (100-111); GLOM FILT RATE Estimated ABOVE60 mL/min (>60); GLUCOSE FASTING 88 mg/dL (70-110); POTASSIUM 4.5 mmol/L (3.5-5.1); PROTEIN TOTAL SERUM 6.3 g/dL (6.0-8.3); SODIUM 144 mmol/L (135-145)
[2016-12-21 05:36] LABS: HEMATOCRIT 33.9 % (38.0-50.0); HEMOGLOBIN 11.2 gm/dL (13.0-16.0); MEAN CELL VOLUME 91.8 FL (83-96); MEAN CORPUSCULAR HEMOGLOBIN 30.2 PG (28-34); MEAN PLATELET VOLUME 8.1 FL (6.5-11.5); RED BLOOD COUNT 3.69 X10e (3.90-5.60); RED CELL DISTRIBUTION WIDTH 13.6 % (11.0-15.5); WHITE BLOOD COUNT 5.8 X10e3 (4.0-10.5)
[2016-12-21 06:16] LABS: ALBUMIN SERUM 2.8 g/dL (3.5-5.0); ALKALINE PHOSPHATASE 57 U/L (32-92); ALT (SGPT) 8 U/L (10-40); AST (SGOT) 20 U/L (10-42); BILIRUBIN,TOTAL 0.2 mg/dL (0.2-2.0); BLOOD UREA NITROGEN 13 mg/dL (9-23); BUN/CREATININE RATIO 14.44; CALCIUM SERUM 8.6 mg/dL (8.4-10.2); CARBON DIOXIDE 32 mmol/L (22-31); CHLORIDE 100 mmol/L (100-111); CREATININE SERUM 0.9 mg/dL (0.6-1.4); GLOM FILT RATE Estimated ABOVE60 mL/min (>60); GLUCOSE FASTING 84 mg/dL (70-110); POTASSIUM 4.6 mmol/L (3.5-5.1); PROTEIN TOTAL SERUM 5.7 g/dL (6.0-8.3); SODIUM 138 mmol/L (135-145)
[2016-12-22 14:55] LABS: BODY FLUID APPEARANCE TURBID; BODY FLUID SOURCE BRONCHIAL LAVAGE
[2016-12-23 06:59] LABS: BLOOD UREA NITROGEN 18 mg/dL (9-23); CALCIUM SERUM 8.9 mg/dL (8.4-10.2); CARBON DIOXIDE 32 mmol/L (22-31); CHLORIDE 98 mmol/L (100-111); CREATININE SERUM 0.9 mg/dL (0.6-1.4); GLOM FILT RATE Estimated ABOVE60 mL/min (>60); GLUCOSE FASTING 134 mg/dL (70-110); MAGNESIUM 1.7 mg/dL (1.6-3.0); SODIUM 137 mmol/L (135-145)
[2016-12-24 13:18] LABS: BLOOD UREA NITROGEN 13 mg/dL (9-23); CALCIUM SERUM 9.1 mg/dL (8.4-10.2); CARBON DIOXIDE 33 mmol/L (22-31); CHLORIDE 96 mmol/L (100-111); GLOM FILT RATE Estimated ABOVE60 mL/min (>60); GLUCOSE FASTING 65 mg/dL (70-110); POTASSIUM 4.1 mmol/L (3.5-5.1); SODIUM 140 mmol/L (135-145)
[2016-12-24 14:43] LABS: BASOPHIL% 0.1 % (0-2.5); HEMATOCRIT 38.9 % (38.0-50.0); HEMOGLOBIN 12.4 gm/dL (13.0-16.0); LYMPHOCYTE# 0.4 X10e3 (1.0-3.5); LYMPHOCYTE% 5.3 % (17.0-45.0); MEAN CELL VOLUME 94.7 FL (83-96); MEAN CORPUSCULAR HEMOGLOBIN 30.2 PG (28-34); MEAN CORPUSCULAR HGB CONC 31.8 g/dL (30-36); MEAN PLATELET VOLUME 8.9 FL (6.5-11.5); MONOCYTE# 0.2 X10e3 (0-1.0); MONOCYTE% 2.8 % (3.0-12.0); NEUTROPHIL# 7.5 X10e3 (1.5-7.1); NEUTROPHIL% 91.8 % (40-75); PLATELET COUNT 145 X10e3 (140-420); RED BLOOD COUNT 4.11 X10e (3.90-5.60); RED CELL DISTRIBUTION WIDTH 13.8 % (11.0-15.5); WHITE BLOOD COUNT 8.1 X10e3 (4.0-10.5)
[2016-12-24 15:00] LABS: DIFF IND NO
[2016-12-25] MEDS ORDERED: OMNICEF300 M1 PO (16:21)
[2016-12-25] MEDS ORDERED: FLORINEF0.1 M1 PO (16:21)
[2016-12-25] MEDS ORDERED: MIRALAX17 GM PO (16:22)
[2016-12-25] MEDS ORDERED: PREDNISONE (16:22)
== END 2016-12-25 17:42 | disposition home or self-care (01) | DRG 163 ==
LOC: CED 23:53 → CEDOF 12-19 02:31 → C2A 12-19 03:53
PROVIDERS: Emergency Medicine; Hospitalist; Internal Medicine; Internal Medicine Cardiovascular Disease; Nurse Practitioner
PROC: 0DB68ZX Excision of Stomach, Via Natural or Artificial Opening Endoscopic, Diagnostic (ICD-10-PCS; principal; 2016-12-20 11:00)
PROC: 0B968ZX Drainage of Right Lower Lobe Bronchus, Via Natural or Artificial Opening Endoscopic, Diagnostic (ICD-10-PCS; 2016-12-22)
PROC: 0BCM8ZZ Extirpation of Matter from Bilateral Lungs, Via Natural or Artificial Opening Endoscopic (ICD-10-PCS; 2016-12-22 13:21)
PROC: 0DBL8ZX Excision of Transverse Colon, Via Natural or Artificial Opening Endoscopic, Diagnostic (ICD-10-PCS; 2016-12-25)
DX: J44.0 Chronic obstructive pulmonary disease with (acute) lower respiratory infection (principal); J18.9 Pneumonia, unspecified organism; E44.0 Moderate protein-calorie malnutrition; I50.22 Chronic systolic (congestive) heart failure; M45.9 Ankylosing spondylitis of unspecified sites in spine; Z68.1 Body mass index [BMI] 19.9 or less, adult; I25.5 Ischemic cardiomyopathy; I25.10 Atherosclerotic heart disease of native coronary artery without angina pectoris; J20.9 Acute bronchitis, unspecified; J44.1 Chronic obstructive pulmonary disease with (acute) exacerbation; D12.3 Benign neoplasm of transverse colon; K29.50 Unspecified chronic gastritis without bleeding; K57.90 Diverticulosis of intestine, part unspecified, without perforation or abscess without bleeding; K64.8 Other hemorrhoids; Z85.46 Personal history of malignant neoplasm of prostate; F17.210 Nicotine dependence, cigarettes, uncomplicated; N18.9 Chronic kidney disease, unspecified; K59.00 Constipation, unspecified; Z91.013 Allergy to seafood; Z95.5 Presence of coronary angioplasty implant and graft; Z82.49 Family history of ischemic heart disease and other diseases of the circulatory system; K38.9 Disease of appendix, unspecified
CPT/HCPCS: 36415; 71010; 71250; 74020; 74176; 80048; 80053; 80076; 82150; 82274; 82308; 82378; 82553; 83605; 83690; 83735; 84153; 84484; 85025; 85027; 85610; 85730; 86301; 87040; 87070; 87102; 87106; 87116; 87205; 87206; 87252; 87254; 87278; 88108; 88305; 88312; 89051; 92526; 92610; 93005; 93306; 94640; 94760; 96361; 96374; 97110; 97116; 97163; 97165; 97530; 99285; G8978-GP; G8979-GP; G8980-GP; G8987-GO; G8988-GO; G8989-GO; G8996-GN; G8997-GN; J0171; J0456; J0696; J2250; J2920; J2930; J3010

== ENCOUNTER → 2017-02-01 | Outpatient (CLI) | payer MEDICARE, BC ==
[~2017-02-01] MED LIST changes: +FLORINEF0.1 M1 PO; +MIRALAX17 GM PO; +OMNICEF300 M1 PO; +PERCOCET 10/3251 TAB PO; +PREDNISONE; +REMERON30 MG PO
--- NOTE | ~2017-02-01 | TH ---
Unit #: [id number] #: [id number] Patient: SONNY MACHADO JR [id number] [address] [place], [place] [address] [id number] MR#: [id number] NAME: SONNY MACHADO. : 1945 SEX: M STUDY DATE/TIME: 02/01/2017 UNIT: [facility] ROOM: STUDY DESCRIPTION: Lexiscan stress test - Nuclear Attending Physician: Elizabeth Andrade M.D. Referring Physician: Elizabeth Andrade M.D. Primary Care Physician: Patti Viera M.D. CARDIOLOGY REPORT PROCEDURE PERFORMED Lexiscan Cardiolite stress test - Nuclear portion. PROCEDURE Using technetium 99m-labeled Cardiolite, rest and stress SPECT images were obtained. Multiple SPECT images were obtained in various views, including horizontal and vertical long axis and short axis views of the left ventricle. Images were obtained by gated SPECT method. The patient was administered 10.7 mCi of Cardiolite at rest. The patient was administered 34.1 mCi of Cardiolite after Lexiscan infusion was completed. On the stress images, there is an extremely large area of severely decreased tracer uptake activity involving the entire anterior wall, anteroapical and inferior wall of the left ventricle. The rest images also show an extremely large area of severely decreased tracer uptake activity involving the anterior wall, anteroapical and the entire inferior wall of the left ventricle. Comparing the rest and stress images, there is suspicion for large myocardial infarction involving the entire anterior wall, anteroapical and inferior wall with some cindy-infarct ischemia. The left ventricular ejection fraction is calculated to be 23%, which may be an overestimation. There is akinesis involving the entire anteroapical, anterior wall and inferoapical wall of the left ventricle. CONCLUSION 1. Suspicion for large myocardial infarction involving the entire anterior wall, anteroapical, inferoapical and inferior wall of the left ventricle with some cindy-infarct ischemia. 2. The left ventricular ejection fraction is calculated to be 23%, which appears to be an overestimation. 3. There is akinesis involving the entire anterior wall, anteroapical and inferoapical wall of the left ventricle. 4. There is [id number] left ventricular cavity dilatation both at rest and post stress. 5. Suspicion for severe ischemic cardiomyopathy with large anterior wall and inferior wall myocardial infarction with some cindy-infarct ischemia. Dictated by... Elizabeth Andrade M.D. Unit #: [id number] #: [id number] Patient: CARTER SONNY NUR/cas TD: 02/01/2017 15:18 JOB #: [id number] CARDIOLOGY REPORT Page 1 of 1 X Elizabeth Andrade MD <ELECTRONICALLY SIGNED> 05/04/17 [id number] CARDIOLOGY REPORT
--- NOTE | ~2017-02-01 | ST ---
Unit #: [id number] #: [id number] Patient: SONNY MACHADO [id number] [facility]. [address] [address] [id number] MR#: [id number] NAME: SONNY MACHADO. : 1945 SEX: M STUDY DATE/TIME: 02/01/2017 UNIT: [facility] ROOM: STUDY DESCRIPTION: Attending Physician: Elizabeth Andrade M.D. Referring Physician: Elizabeth Andrade M.D. Primary Care Physician: Patti Viera M.D. CARDIOLOGY REPORT REASON FOR TEST Surgical clearance, known coronary artery disease. FINDINGS Baseline EKG shows normal sinus rhythm, rate of 76 beats per minute, nonspecific ST-T wave changes. PROCEDURE Next, 0.4 mg of Lexiscan was injected per protocol followed by Cardiolite. Next, during the test the patient did complain of shortness of breath; however, he denied any complaints of chest pain during the testing. He did have some transient lightheadedness. Blood pressure dropped briefly into the upper 70s over 40s but rebounded quickly without any intervention. Next, there were no changes to the ST segment suggestive of ischemia. There was an isolated PVC. IMPRESSION 1. Negative EKG portion of Lexiscan Cardiolite. 2. No ST segment changes suggestive of ischemia. 3. Shortness of breath occurred during the testing. Patient denied any chest pain. He also did experience some transient lightheadedness as his blood pressure dropped to 78/42 during the infusion. This was transient and responded and rebounded without any intervention. Repeat blood pressure immediately was 87/51 with an ending blood pressure of 103/59. The patient was asymptomatic. 4. There was an isolated PVC. 5. Please correlate with nuclear imaging. Dictated by... Phyllis Box A.P.R.N. for Elizabeth Andrade M.D. LMW/ch TD: 02/01/2017 10:33 JOB #: [id number] Unit #: [id number] #: [id number] Patient: SONNY MACHADO CARDIOLOGY REPORT Page 1 of 1 X Phyllis Box APRN CARDIOLOGY REPORT
== END | disposition home or self-care (01) ==
LOC: CNUC 08:07
DX: Z01.810 Encounter for preprocedural cardiovascular examination (principal); I25.10 Atherosclerotic heart disease of native coronary artery without angina pectoris; I49.3 Ventricular premature depolarization
CPT/HCPCS: 78452; 93017; A9500; J2785